=== PATIENT | female | born 2000 | race Caucasian/White ===

== ENCOUNTER 2024-05-13 16:54 | Emergency (ER) | payer MEDICAID ==
[~2024-05-13] VITALS: Ht 167.6 cm; Wt 65.0 kg
[2024-05-13 17:05] VITALS: BP 108/64; PULSE 90; RESP 16; TEMP 37.1; O2SAT 99
[2024-05-13 17:59] LABS: CLARITY URINE CLEAR (CLEAR); COLOR URINE YELLOW (YELLOW); GLUCOSE URINE NEGATIVE (NEGATIVE); KETONES URINE NEGATIVE (NEGATIVE); LEUKOCYTE ESTERASE URINE NEGATIVE (NEGATIVE); NITRITE URINE NEGATIVE (NEGATIVE); OCCULT BLOOD URINE 2+ (NEGATIVE); PH URINE >=9.0 (4.5-8.0); PROTEIN URINE 1+ (NEGATIVE); SPECIFIC GRAVITY URINE 1.023 (1.005-1.030)
[2024-05-13 18:31] LABS: BACTERIA URINE TRACE; SQUAMOUS EPITHELIAL CELL URINE FEW /lpf (RARE/1+); WBC URINE NONE SEEN /hpf (0-2)
[2024-05-13 19:53] LABS: BASOPHILS % 0.2 % (0.0-2.0); EOSINOPHILS % 0.2 % (0.0-5.0); HEMATOCRIT. 36.7 % (36.0-48.0); LYMPHOCYTES % 9.4 % (20.0-50.0); MEAN CORPUSCULAR HGB CONC 32.8 g/dL (31.0-37.0); MEAN CORPUSCULAR VOLUME 82.2 fL (81.0-99.0); MEAN PLATELET VOLUME 7.5 fl (7.4-10.4); MONOCYTES % 6.5 % (2.0-8.0); NEUTROPHILS % 83.7 % (40.0-76.0); PLATELET 315 x1000/uL (130-400); RED BLOOD CELL COUNT 4.46 mill/uL (4.2-5.4); RED CELL DISTRIBUTION WIDTH 13.1 % (11.6-14.6); WHITE BLOOD COUNT 11.6 x1000/uL (4.5-11.0)
[2024-05-13 19:59] LABS: CHLORIDE 105 mEq/L (98-107); POTASSIUM 3.7 mEq/L (3.5-5.1); SODIUM 140 mEq/L (136-145)
[2024-05-13 20:00] LABS: CALCIUM 9.4 mg/dL (8.7-10.4); CARBON DIOXIDE 27 mEq/L (21-32)
[2024-05-13 20:05] LABS: CREATININE 0.7 mg/dL (0.6-1.0); GLUCOSE 113 mg/dL (70-105); UREA NITROGEN BLOOD 7 mg/dL (9-23)
[2024-05-13 20:09] LABS: HCG SCREEN NEGATIVE
[2024-05-14] MEDS ORDERED: NAPR-1176 MT (02:06)
[2024-05-14] MEDS ORDERED: AMOX1TAB16 MT (02:06)
[2024-05-14] MEDS ORDERED: BENZ100C86 MT (02:06)
== END 2024-05-14 00:11 | disposition home or self-care (01) ==
LOC: ER 16:54
DX: N83.202 Unspecified ovarian cyst, left side (principal); J32.0 Chronic maxillary sinusitis; Z98.890 Other specified postprocedural states
CPT/HCPCS: 36415; 70486; 76830; 76856; 80048; 81003; 81025; 84703; 85025; 99284

== ENCOUNTER 2024-05-14 00:17 | Emergency (ER) | payer MEDICAID ==
[2024-05-14] MEDS: HYDROCODONE/ACETAMINOPHEN 5/325MG TABLET PO ONE (01:04)
[2024-05-14] MEDS ORDERED: BENZ100C86 MT (02:06)
[2024-05-14] MEDS ORDERED: NAPR-1176 MT (02:06)
[2024-05-14] MEDS ORDERED: AMOX1TAB16 MT (02:06)
[2024-05-14 02:23] VITALS: BP 126/76; PULSE 86; RESP 16; TEMP 37; O2SAT 98
== END 2024-05-14 02:25 | disposition home or self-care (01) ==
LOC: ER 00:17
DX: N83.202 Unspecified ovarian cyst, left side (principal); J32.9 Chronic sinusitis, unspecified
CPT/HCPCS: 99283